=== PATIENT | female | born 1965 | race Hispanic/Latino ===

== ENCOUNTER 2017-10-10 12:21 | Outpatient (CLI) | payer BC ==
--- NOTE | 2017-10-12 13:12 | Magnetic Resonance Report ---
BILATERAL BREAST MRI WITHOUT AND WITH CONTRAST: 10/10/17 12:21:00 CLINICAL: Family history of breast cancer and history of diffuse cystic mastopathy. History of right benign biopsies. COMPARISON:03/31/17 screening mammogram. TECHNIQUE: Axial 1.0-mm T1 without, axial high resolution 2.0-mm T2 and axial 1.0-mm dynamic Vibrant high-resolution postcontrast T1 fat saturation sequences on a 1.5 Melania magnet. The examination was performed with an 8 channel dedicated [employer] breast coil. Post processing with CAD and subtraction was performed on an [employer] workstation. 14.0 cc of Multihance was injected without incident for the contrast portion of the exam. Consent was obtained prior to the administration of the contrast. FINDINGS: Right: Mild background parenchymal enhancement. No mass or suspicious enhancement. No suspicious lymph nodes. A few benign cysts. The largest is retroareolar and measures 7 mm. Left: Mild background parenchymal enhancement. No mass or suspicious enhancement. No suspicious lymph nodes. A few benign cysts. The largest is at 12 o'clock approximately 5 cm from the nipple and it measures 4 mm. IMPRESSION: Negative study with bilateral small benign cysts and no suspicious finding. Recommend routine mammographic screening. BI-RADS 2 - - Benign
== END 2017-10-10 12:22 | disposition home or self-care (01) ==
LOC: SPVIMAG 12:21
PROVIDERS: ATTEND Surgery
DX: N60.01 Solitary cyst of right breast (principal); N60.02 Solitary cyst of left breast; N60.11 Diffuse cystic mastopathy of right breast; N60.12 Diffuse cystic mastopathy of left breast; Z80.3 Family history of malignant neoplasm of breast
CPT/HCPCS: A9577; C8908; 77059

== ENCOUNTER 2020-05-01 09:04 | Outpatient (CLI) | payer BC ==
--- NOTE | 2020-05-01 13:24 | Mammography Report ---
DIGITAL SCREENING MAMMOGRAM WITH TOMOSYNTHESIS WITH CAD, 05/01/2020 CLINICAL INFORMATION / INDICATION: Routine Screening Mammography. TECHNIQUE: Digital bilateral 2D and 3D mammography with tomosynthesis was obtained in the craniocaud al and mediolateral oblique projections. Computer-Aided Detection (CAD) analysis was used for interp retation of this study. COMPARISON: 04/30/2019 FINDINGS: Breast Density: The breasts are heterogeneously dense, which may obscure small masses. No dominant mass, suspicious calcifications, or architectural distortion in the right breast. Right b iopsy changes are again noted. In the central portion of the left breast, mid depth, just superior and lateral to the plane of the n ipple, a 6 mm ovoid benign-appearing density is now seen. IMPRESSION: New probably benign density in the left Follow up recommendation: Left breast ultrasound BI-RADS Category 0: Incomplete. Needs additional imaging evaluation and/or prior mammograms for radha rison. A "normal" or negative report should not discourage follow up or biopsy of a clinically significant f inding. A written summary of these findings will be mailed to the patient. The patient will be entered into a mammography reporting system which will generate a reminder letter for the patient's next appointmen t at the appropriate interval. The [employer] recommends yearly mammograms starting at age 40 and continuing as l narda as a woman is in good health. Breast MRI is recommended for women with an approximate 20-25% or greater lifetime risk of breast cancer, including women with a strong family history of breast or ova christy cancer or who have been treated for Hodgkin's disease. Signer Name: Luis Jiménez MD Signed: 05/01/2020 1:20 PM Workstation Name: [id number]
== END 2020-05-01 09:05 | disposition home or self-care (01) ==
LOC: SPVWC 09:04
PROVIDERS: ATTEND Surgery
DX: Z12.31 Encounter for screening mammogram for malignant neoplasm of breast (principal)
CPT/HCPCS: 77063; 77067

== ENCOUNTER 2020-05-12 13:30 | Outpatient (CLI) | payer BC ==
--- NOTE | 2020-05-13 09:08 | Ultrasound Report ---
LEFT BREAST ULTRASOUND INDICATION: Evaluate finding noted previously in the left breast on the recent screening mammogram. COMPARISON: 05/01/2020, 04/30/2019. FINDINGS: A targeted ultrasound of the left superior and lateral breast was performed to evaluate the site of a previously noted finding seen in this region on the recent screening mammogram. Located at the 3:00 position, 4 cm from the nipple, is a poorly defined hypoechoic lesion measuring 6 x 2 x 4 mm. An ultr asound-guided core biopsy of this is recommended. Located in the left breast at the 1:00 position, 3 cm from the nipple, is a more circumscribed hypoechoic 5 x 4 x 4 mm round lesion. This likely corresp onds with the mammographic finding which has an appearance suggestive of a possible developing oil cy st. A six-month follow-up ultrasound of this is recommended. IMPRESSION: Left breast lesion at the 3:00 position for which ultrasound-guided biopsy is recommended. A separate more defined lesion at the 1:00 position likely corresponds with the initial mammographic finding. The mammographic appearance has a fat density central component and is suggestive of a possi ble developing oil cyst. A six-month follow-up mammogram and and targeted ultrasound is recommended o f this finding. BI-RADS Category 4: Suspicious for Malignancy. A "normal" or negative report should not discourage follow up or biopsy of a clinically significant f inding. A written summary of these findings will be mailed to the patient. FURTHER INFORMATION: According to the [employer], yearly mammograms are recommend ed starting at age 40 and continuing as long as a woman is in good health. Breast MRI is recommended for women with an approximately 20-25% or greater lifetime risk of breast cancer, including women wi th a strong family history of breast or ovarian cancer and women who have been treated for Hodgkin's disease. Signer Name: Bacilio Fonseca MD Signed: 05/13/2020 9:07 AM Workstation Name: [id number]
== END 2020-05-12 13:31 | disposition home or self-care (01) ==
LOC: SPVWC 13:30
PROVIDERS: ATTEND Surgery
DX: R92.8 Other abnormal and inconclusive findings on diagnostic imaging of breast (principal)

== ENCOUNTER 2020-05-27 10:02 | Outpatient (CLI) | payer BC ==
--- NOTE | 2020-05-27 15:08 | Ultrasound Report ---
ULTRASOUND BREAST LEFT LIMITED, 05/27/2020 CLINICAL INFORMATION / INDICATION: Abnormal recent ultrasound,. Planned ultrasound-guided biopsy TECHNIQUE: Targeted ultrasound evaluation was performed of the area of interest. COMPARISON: Left breast ultrasound 05/12/2020, bilateral mammogram 05/01/2020 FINDINGS: On prior ultrasound at 3:00 an area of mild shadowing and focal hypoechogenicity was noted and sugges jose for biopsy. On real-time examination today with me present in including personally scanning, this area does not appear suspicious and a appears to represent an area of fibrocystic breast tissue with an isolated lobule. In the 12:00 position retroareolar area the ovoid hypoechoic area seen previousl y in labeled at 1:00 is noted and appears even more benign on our study today appearing to represent a small cyst simple cyst and not thought significant. This does likely account for the radiographic a bnormality however. IMPRESSION: No significant lesions are seen. I do not see a lesion felt deserving a biopsy. The previ ous hypoechoic area of concern on further examination is not thought significant. As a conservative a pproach I would suggest 6 month follow-up ultrasound. This was discussed with the patient and she is in agreement. Follow up recommendation: As above BI-RADS Category 3: Probably Benign. Followup in 6 months. A normal or "negative" report should not preclude biopsy or follow-up of a clinically suspicious find ing. Signer Name: Luis Jiménez MD Signed: 05/27/2020 3:03 PM Workstation Name: [id number]
== END 2020-05-27 10:03 | disposition home or self-care (01) ==
LOC: SPVWC 10:02
PROVIDERS: ATTEND Surgery
DX: R92.8 Other abnormal and inconclusive findings on diagnostic imaging of breast (principal)